=== PATIENT | female | born 1985 | race Caucasian/White ===

== ENCOUNTER 2020-08-10 01:35 | Emergency (ER) | payer SELFPAY ==
[~2020-08-10] VITALS: Ht 149.9 cm; Wt 60.0 kg
[2020-08-10] MEDS ORDERED: ONDANSETRON HCL 4MG/2ML INJ IV STA ×2 (02:27→04:00)
[2020-08-10] MEDS ORDERED: SODIUM CHLORIDE 0.9% 1,000 ML IV ONE (02:30)
[2020-08-10 03:10] LABS: HEMATOCRIT. 41.3 % (36.0-48.0); HEMOGLOBIN. 13.3 g/dL (12.0-16.0); MEAN CORPUSCULAR VOLUME 83.7 fL (81.0-99.0); MEAN PLATELET VOLUME 8.9 fl (7.4-10.4); PLATELET 339 x1000/uL (130-400); RED BLOOD CELL COUNT 4.94 mill/uL (4.2-5.4); RED CELL DISTRIBUTION WIDTH 15.8 % (11.6-14.6)
[2020-08-10 03:11] LABS: CHLORIDE 106 mEq/L (98-107)
[2020-08-10] MEDS ORDERED: KETOROLAC 30MG/ML VIAL IV SCH (03:22)
[2020-08-10 04:40] LABS: CLARITY URINE TURBID (CLEAR); COLOR URINE YELLOW (YELLOW); SPECIFIC GRAVITY URINE 1.021 (1.005-1.030)
[2020-08-10 04:41] LABS: KETONES URINE 1+ (NEGATIVE); LEUKOCYTE ESTERASE URINE NEGATIVE (NEGATIVE); NITRITE URINE NEGATIVE (NEGATIVE); OCCULT BLOOD URINE 2+ (NEGATIVE); PROTEIN URINE 1+ (NEGATIVE); UROBILINOGEN URINE 0.2 E.U./dL (0.2-1.0)
[2020-08-10 04:54] LABS: PLATELET ESTIMATE NORMAL
[2020-08-10 06:00] VITALS: BP 134/86
== END 2020-08-10 08:53 | disposition home or self-care (01) ==
LOC: ER 01:35
DX: K52.9 Noninfective gastroenteritis and colitis, unspecified (principal); I49.9 Cardiac arrhythmia, unspecified
CPT/HCPCS: 36415; 80053; 81003; 81025; 85025; 93005; 96361; 96374; 96375; 99284; J1885; J2405; J7030

== ENCOUNTER 2024-09-06 09:54 | Emergency (ER) | payer OTHER ==
[~2024-09-06] VITALS: Ht 160 cm; Wt 91.0 kg
[2024-09-06 09:57] VITALS: O2SAT 98
[2024-09-06 10:02] VITALS: O2SAT 97
[2024-09-06] MEDS ORDERED: METOCLOPRAMIDE HCL 10MG TABLET PO ONE (10:30)
[2024-09-06] MEDS ORDERED: ACETAMINOPHEN 325MG TABLET PO ONE (10:30)
[2024-09-06] MEDS ORDERED: KETOROLAC 30MG/ML VIAL IM ONE (10:30)
[2024-09-06] MEDS ORDERED: METO5TAB86 MT (12:05)
[2024-09-06] MEDS ORDERED: NAPR-681 MT (12:05)
[2024-09-06 12:36] VITALS: BP 136/87; PULSE 82; RESP 18; TEMP 98.5
[2024-09-06] MEDS: METOCLOPRAMIDE HCL 10MG TABLET PO NR (12:36)
[2024-09-06] MEDS: KETOROLAC 30MG/ML VIAL IM NR (12:36)
[2024-09-06] MEDS: ACETAMINOPHEN 325MG TABLET PO NR (12:36)
== END 2024-09-06 12:47 | disposition home or self-care (01) ==
LOC: ER 10:24
DX: G40.909 Epilepsy, unspecified, not intractable, without status epilepticus (principal)
CPT/HCPCS: 99283; 96372; J8597; J1885

== ENCOUNTER 2024-12-29 21:35 | Emergency (ER) | payer MEDICAID ==
[~2024-12-29] VITALS: Ht 147.3 cm; Wt 67.0 kg
[~2024-12-29 21:35] MED LIST: METO5TAB86 MT; NAPR-681 MT
[2024-12-29 21:49] VITALS: TEMP 36.7; O2SAT 100
[2024-12-29 22:19] LABS: BASOPHILS % 0.6 % (0.0-2.0); HEMATOCRIT. 45.1 % (36.0-48.0); HEMOGLOBIN. 14.6 g/dL (12.0-16.0); LYMPHOCYTES % 20.3 % (20.0-50.0); MEAN CORPUSCULAR HEMOGLOBIN 29.1 pg (28.0-32.0); MEAN CORPUSCULAR HGB CONC 32.3 g/dL (31.0-37.0); MEAN PLATELET VOLUME 8.1 fl (7.4-10.4); MONOCYTES % 5.3 % (2.0-8.0); NEUTROPHILS % 72.8 % (40.0-76.0); PLATELET 334 x1000/uL (130-400); RED BLOOD CELL COUNT 5.01 mill/uL (4.2-5.4); RED CELL DISTRIBUTION WIDTH 13.6 % (11.6-14.6); WHITE BLOOD COUNT 11.5 x1000/uL (4.5-11.0)
[2024-12-29 22:27] LABS: CHLORIDE 104 mEq/L (98-107); SODIUM 138 mEq/L (136-145)
[2024-12-29 22:28] LABS: CALCIUM 9.9 mg/dL (8.7-10.4); CARBON DIOXIDE 27 mEq/L (21-32)
[2024-12-29 22:33] LABS: CREATININE 0.9 mg/dL (0.6-1.0); GLUCOSE 94 mg/dL (70-105); UREA NITROGEN BLOOD 12 mg/dL (9-23)
[2024-12-29 22:34] LABS: HCG SCREEN NEGATIVE
[2024-12-29 22:35] LABS: ALANINE AMINOTRANSFERASE 72 IU/L (10-49); ALBUMIN 4.5 g/dL (3.2-4.8); ASPARTATE AMINOTRANSFERASE 35 IU/L (<34); BILIRUBIN DIRECT 0.1 mg/dL (<=3.0)
[2024-12-29 22:36] LABS: BILIRUBIN TOTAL 0.4 mg/dL (0.1-1.0); PROTEIN TOTAL 7.8 g/dL (6.0-8.3)
[2024-12-29 22:48] LABS: CLARITY URINE CLOUDY (CLEAR); COLOR URINE YELLOW (YELLOW); GLUCOSE URINE NEGATIVE (NEGATIVE); KETONES URINE 1+ (NEGATIVE); LEUKOCYTE ESTERASE URINE TRACE (NEGATIVE); NITRITE URINE NEGATIVE (NEGATIVE); OCCULT BLOOD URINE 3+ (NEGATIVE); PROTEIN URINE 1+ (NEGATIVE); SPECIFIC GRAVITY URINE 1.022 (1.005-1.030)
[2024-12-29 22:58] LABS: BACTERIA URINE TRACE; RBC URINE TNTC /hpf (0-2); SQUAMOUS EPITHELIAL CELL URINE FEW /lpf (RARE/1+)
[2024-12-29] MEDS ORDERED: CEPH500T MT (23:54)
[2024-12-30] MEDS: KETOROLAC 15MG/ML VIAL IM ONE (00:32)
[2024-12-30] MEDS ORDERED: ONDA-239 PO (00:33)
[2024-12-30] MEDS: HYDROCODONE/ACETAMINOPHEN 10/325MG TABLET PO ONE (00:33)
[2024-12-30] MEDS: CEFTRIAXONE 1GM/50ML 50 ML IV ONE (00:33)
[2024-12-30] MEDS: SODIUM CHLORIDE 0.9% 1,000 ML IV ONE (00:33)
[2024-12-30 01:59] VITALS: BP 124/88; PULSE 69; RESP 15; O2SAT 97
[2025-01-07] MEDS ORDERED: TAMS-54 PO (08:11)
== END 2024-12-30 01:59 | disposition home or self-care (01) ==
LOC: ER 21:35 → EDBEDREQ 12-30 00:34 → ER 12-30 01:59
DX: N20.0 Calculus of kidney (principal); R10.2 Pelvic and perineal pain; Z79.1 Long term (current) use of non-steroidal anti-inflammatories (NSAID)
CPT/HCPCS: 99285; 74176; 80076; 80048; 81003; 81025; 84703; 83690; 85025; 36415; 96365; 96372; J1885; J0696; J7030

== ENCOUNTER 2025-01-04 16:52 | Emergency (ER) | payer MEDICAID, OTHER ==
[~2025-01-04] VITALS: Ht 147.3 cm; Wt 66.8 kg
[~2025-01-04 16:52] MED LIST changes: +CEPH500T MT; +ONDA-239 PO
[2025-01-04 16:54] VITALS: O2SAT 99
[2025-01-04 17:32] VITALS: TEMP 36.7; O2SAT 99
[2025-01-04 18:38] LABS: BASOPHILS % 0.6 % (0.0-2.0); EOSINOPHILS % 0.8 % (0.0-5.0); HEMATOCRIT. 43.9 % (36.0-48.0); HEMOGLOBIN. 14.6 g/dL (12.0-16.0); LYMPHOCYTES % 32.3 % (20.0-50.0); MEAN CORPUSCULAR HGB CONC 33.4 g/dL (31.0-37.0); MEAN CORPUSCULAR VOLUME 89.9 fL (81.0-99.0); MONOCYTES % 5.2 % (2.0-8.0); NEUTROPHILS % 61.1 % (40.0-76.0); PLATELET 330 x1000/uL (130-400); RED BLOOD CELL COUNT 4.88 mill/uL (4.2-5.4)
[2025-01-04] MEDS: SODIUM CHLORIDE 0.9% 1,000 ML IV ONE (18:46)
[2025-01-04 18:47] VITALS: BP 159/110; PULSE 91; RESP 18
[2025-01-04 18:47] LABS: HCG SCREEN NEGATIVE
[2025-01-04] MEDS: KETOROLAC 15MG/ML VIAL IV ONE (18:47)
[2025-01-04 19:02] LABS: CARBON DIOXIDE 26 mEq/L (21-32); CHLORIDE 106 mEq/L (98-107); POTASSIUM 3.9 mEq/L (3.5-5.1); SODIUM 138 mEq/L (136-145)
[2025-01-04 19:08] LABS: CREATININE 0.7 mg/dL (0.6-1.0); GLUCOSE 88 mg/dL (70-105); UREA NITROGEN BLOOD 9 mg/dL (9-23)
[2025-01-04 19:10] LABS: ALANINE AMINOTRANSFERASE 49 IU/L (10-49); ALBUMIN 4.4 g/dL (3.2-4.8); ASPARTATE AMINOTRANSFERASE 31 IU/L (<34); BILIRUBIN TOTAL 0.4 mg/dL (0.1-1.0); PROTEIN TOTAL 7.7 g/dL (6.0-8.3)
[2025-01-04 19:33] LABS: CLARITY URINE CLEAR (CLEAR); COLOR URINE YELLOW (YELLOW); GLUCOSE URINE NEGATIVE (NEGATIVE); KETONES URINE TRACE (NEGATIVE); LEUKOCYTE ESTERASE URINE NEGATIVE (NEGATIVE); NITRITE URINE NEGATIVE (NEGATIVE); OCCULT BLOOD URINE NEGATIVE (NEGATIVE); PH URINE 5.5 (4.5-8.0); PROTEIN URINE NEGATIVE (NEGATIVE); SPECIFIC GRAVITY URINE 1.025 (1.005-1.030); UROBILINOGEN URINE 0.2 E.U./dL (0.2-1.0)
[2025-01-07] MEDS ORDERED: TAMS-54 PO (08:11)
== END 2025-01-04 21:44 | disposition home or self-care (01) ==
LOC: ER 16:52
DX: N20.0 Calculus of kidney (principal); Z87.440 Personal history of urinary (tract) infections; Z79.1 Long term (current) use of non-steroidal anti-inflammatories (NSAID)
CPT/HCPCS: 80053; 81003; 81025; 84703; 83690; 85025; 36415; 74176; 96361; 96374; 99285; J1885; J7030; Z7610

== ENCOUNTER 2025-06-09 09:24 | Emergency (ER) | payer MEDICAID ==
[~2025-06-09] VITALS: Ht 149.9 cm; Wt 70.0 kg
[~2025-06-09 09:24] MED LIST changes: +TAMS-54 PO
[2025-06-09 09:31] VITALS: O2SAT 99
[2025-06-09] MEDS: METOCLOPRAMIDE HCL 10MG/2ML VIAL IV ONE (10:18)
[2025-06-09] MEDS: SODIUM CHLORIDE 0.9% 1,000 ML IV ONE (10:18)
[2025-06-09] MEDS: KETOROLAC 15MG/ML VIAL IV ONE (10:18)
[2025-06-09] MEDS ORDERED: TOPUD PO (11:36)
[2025-06-09 12:04] VITALS: BP 123/80; PULSE 74; RESP 17; TEMP 36.9; O2SAT 100
== END 2025-06-09 12:07 | disposition home or self-care (01) ==
LOC: ER 09:24
DX: G44.209 Tension-type headache, unspecified, not intractable (principal); R11.2 Nausea with vomiting, unspecified; E86.0 Dehydration; Z20.822 Contact with and (suspected) exposure to COVID-19; Z79.1 Long term (current) use of non-steroidal anti-inflammatories (NSAID); Z87.440 Personal history of urinary (tract) infections
CPT/HCPCS: 99285; 96374; 96361; 96375; 87426; J1885; J2765; J7030

== ENCOUNTER 2025-07-02 11:03 | Emergency (ER) | payer MEDICAID ==
[~2025-07-02] VITALS: Ht 149.9 cm; Wt 73.0 kg
[~2025-07-02 11:03] MED LIST changes: +TOPUD PO
[2025-07-02 11:08] VITALS: O2SAT 98
[2025-07-02] MEDS: LACTATED RINGERS 1,000 ML IV SCH (11:58)
[2025-07-02] MEDS: METOCLOPRAMIDE HCL 10MG/2ML VIAL IV ONE (11:58)
[2025-07-02] MEDS: ACETAMINOPHEN 1000MG/100ML 100 ML IV ONE (12:07)
[2025-07-02 12:17] LABS: BASOPHILS % 0.8 % (0.0-2.0); EOSINOPHILS % 1.0 % (0.0-5.0); HEMATOCRIT. 39.6 % (36.0-48.0); HEMOGLOBIN. 13.0 g/dL (12.0-16.0); LYMPHOCYTES % 19.8 % (20.0-50.0); MEAN PLATELET VOLUME 8.2 fl (7.4-10.4); MONOCYTES % 6.8 % (2.0-8.0); NEUTROPHILS % 71.6 % (40.0-76.0); PLATELET 324 x1000/uL (130-400); RED BLOOD CELL COUNT 4.39 mill/uL (4.2-5.4); RED CELL DISTRIBUTION WIDTH 14.7 % (11.6-14.6)
[2025-07-02 12:31] LABS: CREATININE 0.6 mg/dL (0.6-1.0); UREA NITROGEN BLOOD < 5 mg/dL (9-23)
[2025-07-02 12:33] LABS: ASPARTATE AMINOTRANSFERASE 19 IU/L (<34); BILIRUBIN TOTAL 0.3 mg/dL (0.1-1.0); PROTEIN TOTAL 6.9 g/dL (6.0-8.3)
[2025-07-02 13:13] LABS: B-HCG QUANTITATIVE 60268 mIU/mL (<6)
[2025-07-02 15:05] VITALS: BP 114/76; PULSE 81; RESP 18; TEMP 36.7; O2SAT 98
[2025-07-02 16:01] LABS: CLARITY URINE CLEAR (CLEAR); COLOR URINE YELLOW (YELLOW); GLUCOSE URINE NEGATIVE (NEGATIVE); KETONES URINE TRACE (NEGATIVE); LEUKOCYTE ESTERASE URINE NEGATIVE (NEGATIVE); NITRITE URINE NEGATIVE (NEGATIVE); OCCULT BLOOD URINE NEGATIVE (NEGATIVE); PH URINE 6.0 (4.5-8.0); PROTEIN URINE NEGATIVE (NEGATIVE); SPECIFIC GRAVITY URINE 1.020 (1.005-1.030); UROBILINOGEN URINE 0.2 E.U./dL (0.2-1.0)
== END 2025-07-02 15:06 | disposition home or self-care (01) ==
LOC: ER 11:03
DX: O26.891 Other specified pregnancy related conditions, first trimester (principal); R10.20 Pelvic and perineal pain unspecified side; Z3A.14 14 weeks gestation of pregnancy
CPT/HCPCS: 99285; 96365; 76805; 96375; 80053; 81003; 84702; 85025; 36415; J2765; J0131

== ENCOUNTER 2025-09-08 10:17 | Emergency (ER) | payer MEDICAID ==
[~2025-09-08] VITALS: Ht 149.9 cm; Wt 76.0 kg
[2025-09-08 10:24] VITALS: O2SAT 99
[2025-09-08 10:49] LABS: CLARITY URINE CLOUDY (CLEAR); COLOR URINE YELLOW (YELLOW); GLUCOSE URINE NEGATIVE (NEGATIVE); KETONES URINE NEGATIVE (NEGATIVE); LEUKOCYTE ESTERASE URINE NEGATIVE (NEGATIVE); NITRITE URINE NEGATIVE (NEGATIVE); OCCULT BLOOD URINE NEGATIVE (NEGATIVE); PH URINE 6.5 (4.5-8.0); PROTEIN URINE NEGATIVE (NEGATIVE); SPECIFIC GRAVITY URINE 1.014 (1.005-1.030); UROBILINOGEN URINE 0.2 E.U./dL (0.2-1.0)
[2025-09-08 11:27] LABS: SQUAMOUS EPITHELIAL CELL URINE 3+ /lpf (RARE/1+)
[2025-09-08 11:28] LABS: AMORPHOUS SEDIMENT URINE 1+ /lpf
[2025-09-08 11:29] LABS: BACTERIA URINE 1+; RBC URINE 0-2 /hpf (0-2); WBC URINE 0-2 /hpf (0-2)
[2025-09-08 11:30] LABS: BASOPHILS % 1.1 % (0.0-2.0); EOSINOPHILS % 1.0 % (0.0-5.0); HEMATOCRIT. 38.5 % (36.0-48.0); HEMOGLOBIN. 12.8 g/dL (12.0-16.0); LYMPHOCYTES % 17.6 % (20.0-50.0); MEAN PLATELET VOLUME 8.4 fl (7.4-10.4); MONOCYTES % 5.7 % (2.0-8.0); NEUTROPHILS % 74.6 % (40.0-76.0); PLATELET 328 x1000/uL (130-400); RED BLOOD CELL COUNT 4.35 mill/uL (4.2-5.4); RED CELL DISTRIBUTION WIDTH 13.4 % (11.6-14.6)
[2025-09-08 11:48] LABS: CREATININE 0.5 mg/dL (0.6-1.0); UREA NITROGEN BLOOD < 5 mg/dL (9-23)
[2025-09-08 12:31] LABS: HCG SCREEN POSITIVE
[2025-09-08] MEDS: ACETAMINOPHEN 500MG TABLET PO ONE (12:31)
[2025-09-08 14:35] VITALS: BP 125/80; PULSE 71; RESP 17; TEMP 36.7; O2SAT 99
== END 2025-09-08 14:51 | disposition left against medical advice (07) ==
LOC: ER 10:17
DX: O14.92 Unspecified pre-eclampsia, second trimester (principal); Z55.6 Problems related to health literacy; Z79.1 Long term (current) use of non-steroidal anti-inflammatories (NSAID); Z3A.23 23 weeks gestation of pregnancy
CPT/HCPCS: 36415; 80048; 81003; 84703; 85025; 99291